=== PATIENT | male | born 1985 | race Caucasian/White ===

== ENCOUNTER 2016-11-20 20:50 | Emergency (ER) | payer MEDICAID, OTHER ==
[2016-11-20] MEDS ORDERED: NORCO 5/325MG TABLET (BULK) As Ordered ONE (22:37)
[2016-11-20] MEDS ORDERED: BACTRIM 160MG/800MG DS TAB As Ordered ONE (22:37)
--- NOTE | 2016-11-20 22:52 | EDDOCDS ---
Physician Documentation [facility] Name: Gerald Shaw Age: 31 yrs Sex: Male : 1985 Arrival Date: 11/20/2016 Time: 20:50 Bed TR7 Private MD: NO PRIMARY PHYSICIAN, . Disposition: 11/20/16 22:39 Discharged to Home/Self Care. Impression: Pilonidal cyst without abscess. - Condition is Stable. - Discharge Instructions: Pilonidal Cyst. - Prescriptions for Percocet 5- 325 mg Oral Tablet - take 1 tablet by ORAL route every [address] MARY MDD: 4 tabs; 20 tablet. Bactrim DS 800- 160 mg Oral Tablet - take 1 tablet by ORAL route every 12 hours for 10 days; 20 tablet. - Medication Reconciliation, Local Pharmacy Hours form. - Follow up: Emergency Department; When: 1 - 2 days; Reason: Wound/Symptom Recheck, Recheck today's complaints, Continuance of care. - Problem is new. - Symptoms have improved. - Notes: USE MEDICATIONS INSTRUCTED, FOLLOW UP IN THE ER IN 2 DAYS FOR RECHECK, RETURN TO THE ER SOONER IF FEVER BEGINS OR SYMPTOMS WORSEN, BE SURE TO USE WARM SOAKS OR COMPRESSES Historical: - Allergies: Seroquel; - Home Meds: 1. none - PMHx: pleurisy; - PSHx: Adenoidectomy; - Social history: Smoking status: Patient states former smoker of tobacco. No barriers to communication noted, The patient speaks fluent Hungarian, Speaks appropriately for age. - Family history: No immediate family members are acutely ill. - : The pt / caregiver states he / she is not on anticoagulants. Home medication list is obtained from the patient. - Exposure Risk Screening:: None identified. Vital Signs: 11/20 20:51 BP 172 / 84; Pulse 110; Resp 18; Temp 97; Pulse Ox 96% ; Weight 145.15 kg / 320 lbs; jlm Height 6 ft. 3 in. (190.50 cm); Pain 8/10; 22:49 BP 168 / 88; Pulse 102; Resp 17; Temp 97.6(T); Pulse Ox 99% on R/A; mb9 20:51 Body Mass Index 40.00 (145.15 kg, 190.50 cm) jlm MDM: 22:32 oxyCODONE-acetaminophen 4 pack 5 mg-325 mg 1 packets PO once; Dispense with pt, take as ck7 per instruction on package ordered. 22:32 Trimethoprim-Sulfamethoxazole 160 mg-800 mg (DS) 1 tabs PO once ordered. ck7 Administered Medications: 22:48 Drug: oxyCODONE-acetaminophen 4 pack 1 packets [oxycodone-acetaminophen 5 mg-325 mg mb9 tablet (1 tabs)] {Co-Signature: kmg1 (Jo Ann Avilez RN).} Route: PO; 22:49 Drug: Trimethoprim-Sulfamethoxazole 1 tabs [sulfamethoxazole 800 mg-trimethoprim 160 mg mb9 tablet (1 tabs)] Route: PO; Signatures: Rubina GonzalezRN RN jo3 Ambrosio Casas RPA-C RPA-Cck7 Haris Alexandra RN RN mb9 Jo Ann Avilez RN kmg1 MTDD
--- NOTE | 2016-11-20 22:52 | EDDOCDS ---
Nurse's Notes [facility] Name: Gerald Shaw Age: 31 yrs Sex: Male : 1985 Arrival Date: 11/20/2016 Time: 20:50 Bed TR7 Private MD: NO PRIMARY PHYSICIAN, . Diagnosis: Pilonidal cyst without abscess Presentation: 11/20 20:56 Presenting complaint: Patient states: History of pilonidal cyst. Has always drained on jo3 its own. This episode started 2 days ago and pain is significant and it has not opened up. Adult Sepsis Screening: The patient does not have new or worsening altered mentation. Patient's respiratory rate is less than 22. Systolic blood pressure is greater than 100. Patient has a qSOFA score of 0- Negative Sepsis Screen. Suicide/Homicide risk assessment- the patient denies having any suicidal and/or homicidal ideations and does not present with any other emotional, behavioral or mental health complaints. Status: Patient is not a food service associate or dependent. Transition of care: patient was not received from another setting of care. 20:56 Acuity: PANCHO Level 3 jo3 20:56 Method Of Arrival: Walkin/Carried/Asstd jo3 Triage Assessment: 20:58 General: Appears uncomfortable, Behavior is appropriate for age, cooperative. Pain: jo3 Pain currently is 6 out of 10 on a pain scale. At worst was 9 out of 10 on a pain scale. HIV screening NA for this visit Offered previously. Neurological: Level of Consciousness is awake, alert, Oriented to person, place, time. Respiratory: Airway is patent Respiratory effort is even, unlabored. Derm: Skin is pink, warm & dry. Historical: - Allergies: Seroquel; - Home Meds: 1. none - PMHx: pleurisy; - PSHx: Adenoidectomy; - Social history: Smoking status: Patient states former smoker of tobacco. No barriers to communication noted, The patient speaks fluent Thai, Speaks appropriately for age. - Family history: No immediate family members are acutely ill. - : The pt / caregiver states he / she is not on anticoagulants. Home medication list is obtained from the patient. - Exposure Risk Screening:: None identified. Screenin:49 Screening information is obtained from the patient. Fall risk: No risks identified. mb9 Assistance ADL's: requires no assistance with activities of daily living. Abuse/DV Screen: The patient / caregiver reports he/she is: not in a situation that causes fear, pain or injury. Nutritional screening: No deficits noted. Advance Directives: There is no active DNR order. home support is adequate. Assessment: 22:49 General: Appears uncomfortable, Behavior is cooperative. Pain: Location: buttocks Pain mb9 currently is 8 out of 10 on a pain scale. Respiratory: Airway is patent Respiratory effort is even, unlabored. Vital Signs: 20:51 BP 172 / 84; Pulse 110; Resp 18; Temp 97; Pulse Ox 96% ; Weight 145.15 kg; Height 6 ft. jlm 3 in. (190.50 cm); Pain 8/10; 22:49 BP 168 / 88; Pulse 102; Resp 17; Temp 97.6(T); Pulse Ox 99% on R/A; mb9 20:51 Body Mass Index 40.00 (145.15 kg, 190.50 cm) [facility] Vitals: 20:51 Log In Time: November 20, 2016 at 20:51. [facility] ED Course: 20:50 Patient visited by Baylee Alcantara, Safety And Security Officer. jlm 20:50 Patient moved to Waiting jl 20:51 DANNY ROMEO is Private Physician. [facility] 20:51 NO PRIMARY PHYSICIAN, . is Private Physician. jlm 20:53 Patient moved to Pre RCE jlm 20:57 Triage Initiated jo3 20:59 Patient visited by Rubina Gonzalez RN. jo3 21:20 Patient moved to Triage 3 jb5 21:54 Patient visited by Stephanie Brizuela PCA. jb5 22:04 [facility]C [facility] ck7 22:04 Finesse Luke DO is Attending Physician. ck7 22:04 Patient visited by Ambrosio Casas RPA-C. ck7 22:48 Patient moved to TR mb9 22:49 The patient / caregiver is instructed regarding the plan of care and ED course. Patient mb9 has correct armband on for positive identification. 22:49 No IV's were initiated during this patient's visit. No procedures done that require mb9 assistance. Administered Medications: 22:48 Drug: oxyCODONE-acetaminophen 4 pack 1 packets [oxycodone-acetaminophen 5 mg-325 mg mb9 tablet (1 tabs)] {Co-Signature: kmg1 (Jo Ann Avilez RN).} Route: PO; 22:49 Drug: Trimethoprim-Sulfamethoxazole 1 tabs [sulfamethoxazole 800 mg-trimethoprim 160 mg mb9 tablet (1 tabs)] Route: PO; Order Results: There are currently no results for this order. Outcome: 22:39 Discharge ordered by Provider. ck7 22:49 Discharge Assessment: Patient awake, alert and oriented x 3. No cognitive and/or mb9 functional deficits noted. Patient verbalized understanding of disposition instructions. patient administered narcotics - no. The following High Risk Discharge criteria are identified: None. Discharged to home ambulatory. Condition: good Condition: stable. Discharge instructions given to patient, significant other, Instructed on discharge instructions, follow up and referral plans. medication usage, Demonstrated understanding of instructions, medications, Pt was receptive of discharge instructions/ teaching. Prescriptions given X 2. No special radiology studies were completed. Property :Personal belongings accompany Pt. 22:51 Patient left the ED. mb9 Signatures: Stephanie Brizuela, SALES AND MERCHANDISING REPRESENTATIVE SALES AND MERCHANDISING REPRESENTATIVE jb5 Rubina Gonzalez,RN RN Ambrosio Caballero, RPA-C RPA-Cck7 Baylee Alcantara, Safety And Security Officer Unit Haris MurciaRN RN mb9 Jo Ann Avilez RN kmg1 MTDD
--- NOTE | 2016-11-22 23:52 | EDDOCDS ---
Nurse's Notes [facility] Name: Gerald Shaw Age: 31 yrs Sex: Male : 1985 Arrival Date: 11/20/2016 Time: 20:50 Bed TR7 Private MD: NO PRIMARY PHYSICIAN, . Diagnosis: Pilonidal cyst without abscess Presentation: 11/20 20:56 Presenting complaint: Patient states: History of pilonidal cyst. Has always drained on jo3 its own. This episode started 2 days ago and pain is significant and it has not opened up. Adult Sepsis Screening: The patient does not have new or worsening altered mentation. Patient's respiratory rate is less than 22. Systolic blood pressure is greater than 100. Patient has a qSOFA score of 0- Negative Sepsis Screen. Suicide/Homicide risk assessment- the patient denies having any suicidal and/or homicidal ideations and does not present with any other emotional, behavioral or mental health complaints. Status: Patient is not a park services specialist or dependent. Transition of care: patient was not received from another setting of care. 20:56 Acuity: PANCHO Level 3 jo3 20:56 Method Of Arrival: Walkin/Carried/Asstd jo3 Triage Assessment: 20:58 General: Appears uncomfortable, Behavior is appropriate for age, cooperative. Pain: jo3 Pain currently is 6 out of 10 on a pain scale. At worst was 9 out of 10 on a pain scale. HIV screening NA for this visit Offered previously. Neurological: Level of Consciousness is awake, alert, Oriented to person, place, time. Respiratory: Airway is patent Respiratory effort is even, unlabored. Derm: Skin is pink, warm & dry. Historical: - Allergies: Seroquel; - Home Meds: 1. none - PMHx: pleurisy; - PSHx: Adenoidectomy; - Social history: Smoking status: Patient states former smoker of tobacco. No barriers to communication noted, The patient speaks fluent Korean, Speaks appropriately for age. - Family history: No immediate family members are acutely ill. - : The pt / caregiver states he / she is not on anticoagulants. Home medication list is obtained from the patient. - Exposure Risk Screening:: None identified. Screenin:49 Screening information is obtained from the patient. Fall risk: No risks identified. mb9 Assistance ADL's: requires no assistance with activities of daily living. Abuse/DV Screen: The patient / caregiver reports he/she is: not in a situation that causes fear, pain or injury. Nutritional screening: No deficits noted. Advance Directives: There is no active DNR order. home support is adequate. Assessment: 22:49 General: Appears uncomfortable, Behavior is cooperative. Pain: Location: buttocks Pain mb9 currently is 8 out of 10 on a pain scale. Respiratory: Airway is patent Respiratory effort is even, unlabored. Vital Signs: 20:51 BP 172 / 84; Pulse 110; Resp 18; Temp 97; Pulse Ox 96% ; Weight 145.15 kg; Height 6 ft. jlm 3 in. (190.50 cm); Pain 8/10; 22:49 BP 168 / 88; Pulse 102; Resp 17; Temp 97.6(T); Pulse Ox 99% on R/A; mb9 20:51 Body Mass Index 40.00 (145.15 kg, 190.50 cm) [facility] Vitals: 20:51 Log In Time: November 20, 2016 at 20:51. [facility] ED Course: 20:50 Patient visited by Baylee Alcantara, [employer] Executive Director. jlm 20:50 Patient moved to Waiting jl 20:51 DANNY ROMEO is Private Physician. [facility] 20:51 NO PRIMARY PHYSICIAN, . is Private Physician. jlm 20:53 Patient moved to Pre RCE jlm 20:57 Triage Initiated jo3 20:59 Patient visited by Rubina Gonzalez,MIHIR. jo3 21:20 Patient moved to Triage 3 jb5 21:54 Patient visited by Stephanie Brizuela PCA. jb5 22:04 Ambrosio Casas RPA-C [facility]. ck7 22:04 Finesse Luke DO is Attending Physician. ck7 22:04 Patient visited by Ambrosio Casas RPA-C. ck7 22:48 Patient moved to TR7 mb9 22:49 The patient / caregiver is instructed regarding the plan of care and ED course. Patient mb9 has correct armband on for positive identification. 22:49 No IV's were initiated during this patient's visit. No procedures done that require mb9 assistance. 11/21 08:56 T-Sheet-- Draft Copy was scanned into [employer] and attached to record. [facility] Administered Medications: 11/20 22:48 Drug: oxyCODONE-acetaminophen 4 pack 1 packets [oxycodone-acetaminophen 5 mg-325 mg mb9 tablet (1 tabs)] {Co-Signature: kmg1 (Jo Ann Avilez RN).} Route: PO; 22:49 Drug: Trimethoprim-Sulfamethoxazole 1 tabs [sulfamethoxazole 800 mg-trimethoprim 160 mg mb9 tablet (1 tabs)] Route: PO; Order Results: There are currently no results for this order. Outcome: 22:39 Discharge ordered by Provider. ck7 22:49 Discharge Assessment: Patient awake, alert and oriented x 3. No cognitive and/or mb9 functional deficits noted. Patient verbalized understanding of disposition instructions. patient administered narcotics - no. The following High Risk Discharge criteria are identified: None. Discharged to home ambulatory. Condition: good Condition: stable. Discharge instructions given to patient, significant other, Instructed on discharge instructions, follow up and referral plans. medication usage, Demonstrated understanding of instructions, medications, Pt was receptive of discharge instructions/ teaching. Prescriptions given X 2. No special radiology studies were completed. Property :Personal belongings accompany Pt. 22:51 Patient left the ED. mb9 Signatures: Stephanie Brizuela, JAMIE INVENTORY ASSOCIATE AND DRIVER jb5 Rubina Gonzalez,RN RN Ambrosio Caballero, SABINA-C RPA-Cck7 Baylee Alcantara, [employer] Executive Director Unit Haris MurciaRN RN mb9 Pat Copeland RN kmg1 Chart Complete MTDD
--- NOTE | 2016-11-22 23:52 | EDDOCDS ---
Physician Documentation [facility] Name: Gerald Shaw Age: 31 yrs Sex: Male : 1985 Arrival Date: 11/20/2016 Time: 20:50 Bed TR7 Private MD: NO PRIMARY PHYSICIAN, . Disposition: 11/20/16 22:39 Discharged to Home/Self Care. Impression: Pilonidal cyst without abscess. - Condition is Stable. - Discharge Instructions: Pilonidal Cyst. - Prescriptions for Percocet 5- 325 mg Oral Tablet - take 1 tablet by ORAL route every [address] MARY MDD: 4 tabs; 20 tablet. Bactrim DS 800- 160 mg Oral Tablet - take 1 tablet by ORAL route every 12 hours for 10 days; 20 tablet. - Medication Reconciliation, Local Pharmacy Hours form. - Follow up: Emergency Department; When: 1 - 2 days; Reason: Wound/Symptom Recheck, Recheck today's complaints, Continuance of care. - Problem is new. - Symptoms have improved. - Notes: USE MEDICATIONS INSTRUCTED, FOLLOW UP IN THE ER IN 2 DAYS FOR RECHECK, RETURN TO THE ER SOONER IF FEVER BEGINS OR SYMPTOMS WORSEN, BE SURE TO USE WARM SOAKS OR COMPRESSES Historical: - Allergies: Seroquel; - Home Meds: 1. none - PMHx: pleurisy; - PSHx: Adenoidectomy; - Social history: Smoking status: Patient states former smoker of tobacco. No barriers to communication noted, The patient speaks fluent Kittitian, Speaks appropriately for age. - Family history: No immediate family members are acutely ill. - : The pt / caregiver states he / she is not on anticoagulants. Home medication list is obtained from the patient. - Exposure Risk Screening:: None identified. Vital Signs: 11/20 20:51 BP 172 / 84; Pulse 110; Resp 18; Temp 97; Pulse Ox 96% ; Weight 145.15 kg / 320 lbs; jlm Height 6 ft. 3 in. (190.50 cm); Pain 8/10; 22:49 BP 168 / 88; Pulse 102; Resp 17; Temp 97.6(T); Pulse Ox 99% on R/A; mb9 20:51 Body Mass Index 40.00 (145.15 kg, 190.50 cm) jlm MDM: 22:32 oxyCODONE-acetaminophen 4 pack 5 mg-325 mg 1 packets PO once; Dispense with pt, take as ck7 per instruction on package ordered. 22:32 Trimethoprim-Sulfamethoxazole 160 mg-800 mg (DS) 1 tabs PO once ordered. ck7 11/21 08:56 T-Sheet-- Draft Copy was scanned into [employer] and attached to record. [facility] Administered Medications: 11/20 22:48 Drug: oxyCODONE-acetaminophen 4 pack 1 packets [oxycodone-acetaminophen 5 mg-325 mg mb9 tablet (1 tabs)] {Co-Signature: kmg1 (Jo Ann Avilez RN).} Route: PO; 22:49 Drug: Trimethoprim-Sulfamethoxazole 1 tabs [sulfamethoxazole 800 mg-trimethoprim 160 mg mb9 tablet (1 tabs)] Route: PO; Signatures: Rubina Gonzalez RN RN jo3 Ambrosio Casas, SABINA-C RPA-Cck7 Haris Aelxandra RN RN mb9 Pat Copeland RN kmg1 The chart was reviewed and I authenticate all verbal orders and agree with the evaluation and treatment provided.Attachments: 11/21 08:56 T-Sheet-- Draft Copy [facility] Chart Complete MTDD
--- NOTE | 2016-11-22 23:52 | EDDOCDS ---
Physician Documentation [facility] Name: Gerald Shaw Age: 31 yrs Sex: Male : 1985 Arrival Date: 11/20/2016 Time: 20:50 Bed TR7 Private MD: NO PRIMARY PHYSICIAN, . Disposition: 11/20/16 22:39 Discharged to Home/Self Care. Impression: Pilonidal cyst without abscess. - Condition is Stable. - Discharge Instructions: Pilonidal Cyst. - Prescriptions for Percocet 5- 325 mg Oral Tablet - take 1 tablet by ORAL route every [address] MARY MDD: 4 tabs; 20 tablet. Bactrim DS 800- 160 mg Oral Tablet - take 1 tablet by ORAL route every 12 hours for 10 days; 20 tablet. - Medication Reconciliation, Local Pharmacy Hours form. - Follow up: Emergency Department; When: 1 - 2 days; Reason: Wound/Symptom Recheck, Recheck today's complaints, Continuance of care. - Problem is new. - Symptoms have improved. - Notes: USE MEDICATIONS INSTRUCTED, FOLLOW UP IN THE ER IN 2 DAYS FOR RECHECK, RETURN TO THE ER SOONER IF FEVER BEGINS OR SYMPTOMS WORSEN, BE SURE TO USE WARM SOAKS OR COMPRESSES Historical: - Allergies: Seroquel; - Home Meds: 1. none - PMHx: pleurisy; - PSHx: Adenoidectomy; - Social history: Smoking status: Patient states former smoker of tobacco. No barriers to communication noted, The patient speaks fluent Dutch, Speaks appropriately for age. - Family history: No immediate family members are acutely ill. - : The pt / caregiver states he / she is not on anticoagulants. Home medication list is obtained from the patient. - Exposure Risk Screening:: None identified. Vital Signs: 11/20 20:51 BP 172 / 84; Pulse 110; Resp 18; Temp 97; Pulse Ox 96% ; Weight 145.15 kg / 320 lbs; jlm Height 6 ft. 3 in. (190.50 cm); Pain 8/10; 22:49 BP 168 / 88; Pulse 102; Resp 17; Temp 97.6(T); Pulse Ox 99% on R/A; mb9 20:51 Body Mass Index 40.00 (145.15 kg, 190.50 cm) jlm MDM: 22:32 oxyCODONE-acetaminophen 4 pack 5 mg-325 mg 1 packets PO once; Dispense with pt, take as ck7 per instruction on package ordered. 22:32 Trimethoprim-Sulfamethoxazole 160 mg-800 mg (DS) 1 tabs PO once ordered. ck7 11/21 08:56 T-Sheet-- Draft Copy was scanned into [employer] and attached to record. [facility] Administered Medications: 11/20 22:48 Drug: oxyCODONE-acetaminophen 4 pack 1 packets [oxycodone-acetaminophen 5 mg-325 mg mb9 tablet (1 tabs)] {Co-Signature: kmg1 (Jo Ann Avilez RN).} Route: PO; 22:49 Drug: Trimethoprim-Sulfamethoxazole 1 tabs [sulfamethoxazole 800 mg-trimethoprim 160 mg mb9 tablet (1 tabs)] Route: PO; Signatures: Rubina Gonzalez RN RN jo3 Ambrosio Casas, SABINA-C RPA-Cck7 Haris Alexandra RN RN mb9 Pat Copeland RN kmg1 The chart was reviewed and I authenticate all verbal orders and agree with the evaluation and treatment provided.Attachments: 11/21 08:56 T-Sheet-- Draft Copy [facility] Chart Complete MTDD
--- NOTE | 2016-11-23 17:11 | EDDOCDS ---
Nurse's Notes [facility] Name: Gerald Shaw Age: 31 yrs Sex: Male : 1985 Arrival Date: 11/20/2016 Time: 20:50 Bed TR7 Private MD: NO PRIMARY PHYSICIAN, . Diagnosis: Pilonidal cyst without abscess Presentation: 11/20 20:56 Presenting complaint: Patient states: History of pilonidal cyst. Has always drained on jo3 its own. This episode started 2 days ago and pain is significant and it has not opened up. Adult Sepsis Screening: The patient does not have new or worsening altered mentation. Patient's respiratory rate is less than 22. Systolic blood pressure is greater than 100. Patient has a qSOFA score of 0- Negative Sepsis Screen. Suicide/Homicide risk assessment- the patient denies having any suicidal and/or homicidal ideations and does not present with any other emotional, behavioral or mental health complaints. Status: Patient is not a certified appliance service technician or dependent. Transition of care: patient was not received from another setting of care. 20:56 Acuity: PANCHO Level 3 jo3 20:56 Method Of Arrival: Walkin/Carried/Asstd jo3 Triage Assessment: 20:58 General: Appears uncomfortable, Behavior is appropriate for age, cooperative. Pain: jo3 Pain currently is 6 out of 10 on a pain scale. At worst was 9 out of 10 on a pain scale. HIV screening NA for this visit Offered previously. Neurological: Level of Consciousness is awake, alert, Oriented to person, place, time. Respiratory: Airway is patent Respiratory effort is even, unlabored. Derm: Skin is pink, warm & dry. Historical: - Allergies: Seroquel; - Home Meds: 1. none - PMHx: pleurisy; - PSHx: Adenoidectomy; - Social history: Smoking status: Patient states former smoker of tobacco. No barriers to communication noted, The patient speaks fluent Luxembourgish, Speaks appropriately for age. - Family history: No immediate family members are acutely ill. - : The pt / caregiver states he / she is not on anticoagulants. Home medication list is obtained from the patient. - Exposure Risk Screening:: None identified. Screenin:49 Screening information is obtained from the patient. Fall risk: No risks identified. mb9 Assistance ADL's: requires no assistance with activities of daily living. Abuse/DV Screen: The patient / caregiver reports he/she is: not in a situation that causes fear, pain or injury. Nutritional screening: No deficits noted. Advance Directives: There is no active DNR order. home support is adequate. Assessment: 22:49 General: Appears uncomfortable, Behavior is cooperative. Pain: Location: buttocks Pain mb9 currently is 8 out of 10 on a pain scale. Respiratory: Airway is patent Respiratory effort is even, unlabored. Vital Signs: 20:51 BP 172 / 84; Pulse 110; Resp 18; Temp 97; Pulse Ox 96% ; Weight 145.15 kg; Height 6 ft. jlm 3 in. (190.50 cm); Pain 8/10; 22:49 BP 168 / 88; Pulse 102; Resp 17; Temp 97.6(T); Pulse Ox 99% on R/A; mb9 20:51 Body Mass Index 40.00 (145.15 kg, 190.50 cm) [facility] Vitals: 20:51 Log In Time: November 20, 2016 at 20:51. [facility] ED Course: 20:50 Patient visited by Baylee Alcantara, Train Station Agent. jlm 20:50 Patient moved to Waiting jl 20:51 DANNY ROMEO is Private Physician. [facility] 20:51 NO PRIMARY PHYSICIAN, . is Private Physician. jlm 20:53 Patient moved to Pre RCE jlm 20:57 Triage Initiated jo3 20:59 Patient visited by Rubina Gonzalez,MIHIR. jo3 21:20 Patient moved to Triage 3 jb5 21:54 Patient visited by Stephanie Brizuela PCA. jb5 22:04 [facility]ros[facility] Casas R[facility]-C [facility]. ck7 22:04 Finesse Luke DO is Attending Physician. ck7 22:04 Patient visited by Ambrosio Casas RPA-C. ck7 22:48 Patient moved to TR7 mb9 22:49 The patient / caregiver is instructed regarding the plan of care and ED course. Patient mb9 has correct armband on for positive identification. 22:49 No IV's were initiated during this patient's visit. No procedures done that require mb9 assistance. 11/21 08:56 T-Sheet-- Draft Copy was scanned into [employer] and attached to record. [facility] Administered Medications: 11/20 22:48 Drug: oxyCODONE-acetaminophen 4 pack 1 packets [oxycodone-acetaminophen 5 mg-325 mg mb9 tablet (1 tabs)] {Co-Signature: kmg1 (Jo Ann Avilez RN).} Route: PO; 22:49 Drug: Trimethoprim-Sulfamethoxazole 1 tabs [sulfamethoxazole 800 mg-trimethoprim 160 mg mb9 tablet (1 tabs)] Route: PO; Order Results: There are currently no results for this order. Outcome: 22:39 Discharge ordered by Provider. ck7 22:49 Discharge Assessment: Patient awake, alert and oriented x 3. No cognitive and/or mb9 functional deficits noted. Patient verbalized understanding of disposition instructions. patient administered narcotics - no. The following High Risk Discharge criteria are identified: None. Discharged to home ambulatory. Condition: good Condition: stable. Discharge instructions given to patient, significant other, Instructed on discharge instructions, follow up and referral plans. medication usage, Demonstrated understanding of instructions, medications, Pt was receptive of discharge instructions/ teaching. Prescriptions given X 2. No special radiology studies were completed. Property :Personal belongings accompany Pt. 22:51 Patient left the ED. mb9 Signatures: Stephanie Brizuela, JAMIE CREDIT CLERK jb5 Rubina Gonzalez,RN RN Ambrosio Caballero, SABINA-C RPA-Cck7 Baylee Alcantara, Train Station Agent Unit Haris MurciaRN RN mb9 Pat Copeland RN kmg1 Chart Complete MTDD
--- NOTE | 2016-11-23 17:11 | EDDOCDS ---
Physician Documentation [facility] Name: Gerald Shaw Age: 31 yrs Sex: Male : 1985 Arrival Date: 11/20/2016 Time: 20:50 Bed TR7 Private MD: NO PRIMARY PHYSICIAN, . Disposition: 11/20/16 22:39 Discharged to Home/Self Care. Impression: Pilonidal cyst without abscess. - Condition is Stable. - Discharge Instructions: Pilonidal Cyst. - Prescriptions for Percocet 5- 325 mg Oral Tablet - take 1 tablet by ORAL route every [address] MARY MDD: 4 tabs; 20 tablet. Bactrim DS 800- 160 mg Oral Tablet - take 1 tablet by ORAL route every 12 hours for 10 days; 20 tablet. - Medication Reconciliation, Local Pharmacy Hours form. - Follow up: Emergency Department; When: 1 - 2 days; Reason: Wound/Symptom Recheck, Recheck today's complaints, Continuance of care. - Problem is new. - Symptoms have improved. - Notes: USE MEDICATIONS INSTRUCTED, FOLLOW UP IN THE ER IN 2 DAYS FOR RECHECK, RETURN TO THE ER SOONER IF FEVER BEGINS OR SYMPTOMS WORSEN, BE SURE TO USE WARM SOAKS OR COMPRESSES Historical: - Allergies: Seroquel; - Home Meds: 1. none - PMHx: pleurisy; - PSHx: Adenoidectomy; - Social history: Smoking status: Patient states former smoker of tobacco. No barriers to communication noted, The patient speaks fluent Djiboutian, Speaks appropriately for age. - Family history: No immediate family members are acutely ill. - : The pt / caregiver states he / she is not on anticoagulants. Home medication list is obtained from the patient. - Exposure Risk Screening:: None identified. Vital Signs: 11/20 20:51 BP 172 / 84; Pulse 110; Resp 18; Temp 97; Pulse Ox 96% ; Weight 145.15 kg / 320 lbs; jlm Height 6 ft. 3 in. (190.50 cm); Pain 8/10; 22:49 BP 168 / 88; Pulse 102; Resp 17; Temp 97.6(T); Pulse Ox 99% on R/A; mb9 20:51 Body Mass Index 40.00 (145.15 kg, 190.50 cm) jlm MDM: 22:32 oxyCODONE-acetaminophen 4 pack 5 mg-325 mg 1 packets PO once; Dispense with pt, take as ck7 per instruction on package ordered. 22:32 Trimethoprim-Sulfamethoxazole 160 mg-800 mg (DS) 1 tabs PO once ordered. ck7 11/21 08:56 T-Sheet-- Draft Copy was scanned into [employer] and attached to record. [facility] Administered Medications: 11/20 22:48 Drug: oxyCODONE-acetaminophen 4 pack 1 packets [oxycodone-acetaminophen 5 mg-325 mg mb9 tablet (1 tabs)] {Co-Signature: kmg1 (Jo Ann Avilez RN).} Route: PO; 22:49 Drug: Trimethoprim-Sulfamethoxazole 1 tabs [sulfamethoxazole 800 mg-trimethoprim 160 mg mb9 tablet (1 tabs)] Route: PO; Signatures: Rubina Gonzalez RN RN jo3 Ambrosio Casas, SABINA-C RPA-Cck7 Haris Alexandra RN RN mb9 Pat Copeland RN kmg1 The chart was reviewed and I authenticate all verbal orders and agree with the evaluation and treatment provided.Attachments: 11/21 08:56 T-Sheet-- Draft Copy [facility] Chart Complete MTDD
--- NOTE | 2016-11-23 17:11 | EDDOCDS ---
Physician Documentation [facility] Name: Gerald Shaw Age: 31 yrs Sex: Male : 1985 Arrival Date: 11/20/2016 Time: 20:50 Bed TR7 Private MD: NO PRIMARY PHYSICIAN, . Disposition: 11/20/16 22:39 Discharged to Home/Self Care. Impression: Pilonidal cyst without abscess. - Condition is Stable. - Discharge Instructions: Pilonidal Cyst. - Prescriptions for Percocet 5- 325 mg Oral Tablet - take 1 tablet by ORAL route every [address] MARY MDD: 4 tabs; 20 tablet. Bactrim DS 800- 160 mg Oral Tablet - take 1 tablet by ORAL route every 12 hours for 10 days; 20 tablet. - Medication Reconciliation, Local Pharmacy Hours form. - Follow up: Emergency Department; When: 1 - 2 days; Reason: Wound/Symptom Recheck, Recheck today's complaints, Continuance of care. - Problem is new. - Symptoms have improved. - Notes: USE MEDICATIONS INSTRUCTED, FOLLOW UP IN THE ER IN 2 DAYS FOR RECHECK, RETURN TO THE ER SOONER IF FEVER BEGINS OR SYMPTOMS WORSEN, BE SURE TO USE WARM SOAKS OR COMPRESSES Historical: - Allergies: Seroquel; - Home Meds: 1. none - PMHx: pleurisy; - PSHx: Adenoidectomy; - Social history: Smoking status: Patient states former smoker of tobacco. No barriers to communication noted, The patient speaks fluent Zambian, Speaks appropriately for age. - Family history: No immediate family members are acutely ill. - : The pt / caregiver states he / she is not on anticoagulants. Home medication list is obtained from the patient. - Exposure Risk Screening:: None identified. Vital Signs: 11/20 20:51 BP 172 / 84; Pulse 110; Resp 18; Temp 97; Pulse Ox 96% ; Weight 145.15 kg / 320 lbs; jlm Height 6 ft. 3 in. (190.50 cm); Pain 8/10; 22:49 BP 168 / 88; Pulse 102; Resp 17; Temp 97.6(T); Pulse Ox 99% on R/A; mb9 20:51 Body Mass Index 40.00 (145.15 kg, 190.50 cm) jlm MDM: 22:32 oxyCODONE-acetaminophen 4 pack 5 mg-325 mg 1 packets PO once; Dispense with pt, take as ck7 per instruction on package ordered. 22:32 Trimethoprim-Sulfamethoxazole 160 mg-800 mg (DS) 1 tabs PO once ordered. ck7 11/21 08:56 T-Sheet-- Draft Copy was scanned into [employer] and attached to record. [facility] Administered Medications: 11/20 22:48 Drug: oxyCODONE-acetaminophen 4 pack 1 packets [oxycodone-acetaminophen 5 mg-325 mg mb9 tablet (1 tabs)] {Co-Signature: kmg1 (Jo Ann Avilez RN).} Route: PO; 22:49 Drug: Trimethoprim-Sulfamethoxazole 1 tabs [sulfamethoxazole 800 mg-trimethoprim 160 mg mb9 tablet (1 tabs)] Route: PO; Signatures: Rubina Gonzalez RN RN jo3 Ambrosio Casas, SABINA-C RPA-Cck7 Haris Alexandra RN RN mb9 Pat Copeland RN kmg1 The chart was reviewed and I authenticate all verbal orders and agree with the evaluation and treatment provided.Attachments: 11/21 08:56 T-Sheet-- Draft Copy [facility] Chart Complete MTDD
== END 2016-11-20 22:51 | disposition home or self-care (01) ==
LOC: M ED 20:50
DX: L05.91 Pilonidal cyst without abscess (principal); Z87.09 Personal history of other diseases of the respiratory system; Z88.8 Allergy status to other drugs, medicaments and biological substances; Z87.891 Personal history of nicotine dependence

== ENCOUNTER 2017-02-03 20:24 | Emergency (ER) | payer MEDICAID, SELFPAY ==
[~2017-02-03] VITALS: Ht 188 cm; Wt 145.1 kg
[2017-02-03] MEDS ORDERED: KETOROLAC 30 MG/ML VIAL (J1885) IV ONE (22:15)
[2017-02-03] MEDS ORDERED: GASTROGRAFIN SOLUTION 30ML (Q9963) As Ordered ONE (22:34)
[2017-02-03] MEDS ORDERED: GASTROGRAFIN SOLUTION 30ML (Q9963) PO ONE ×2 (22:40→23:10)
[2017-02-03 22:42] LABS: BASO % 0.6 % (0.0-1.0); EOS # 0.2 K/mm3 (0.0-0.50); EOS % 2.5 % (0.0-3.0); LARGE UNSTAINED CELL # 0.2 K/mm3 (0.0-0.4); LYMPH # 3.1 K/mm3 (1.5-4.5); LYMPH % 32.6 % (24.0-44.0); MEAN CORPUSCULAR HGB CONC 34.2 g/dl (32.0-36.5); MEAN CORPUSCULAR VOLUME 84.9 fl (80.0-96.0); MONO # 0.6 K/mm3 (0.0-0.8); MONO % 6.4 % (0.0-5.0); NEUTROPHILS % 55.8 % (36.0-66.0); PLATELET COUNT, AUTOMATED 295 k/mm3 (150-450); RED CELL DISTRIBUTION WIDTH 13.4 % (11.5-14.5); WHITE BLOOD COUNT 8.9 K/mm3 (4.0-10.0)
[2017-02-03] MEDS ORDERED: MORPHINE 4 MG/ML 1ML SYRINGE IV ONE (23:00)
[2017-02-03 23:06] LABS: ALBUMIN 3.8 GM/DL (3.2-5.2); ALBUMIN/GLOBULIN RATIO 1.15 (1.00-1.93); ALKALINE PHOSPHATASE 101 U/L (45-117); ALT/SGPT 81 U/L (12-78); AMYLASE 43 U/L (25-115); ANION GAP 7 MEQ/L (8-16); AST/SGOT 34 U/L (15-37); BILIRUBIN,DIRECT < 0.1 MG/DL (0.0-0.2); BILIRUBIN,TOTAL 0.3 MG/DL (0.2-1.0); BLOOD UREA NITROGEN 19 MG/DL (7-18); CALCIUM LEVEL 8.6 MG/DL (8.5-10.1); CARBON DIOXIDE LEVEL 27 MEQ/L (21-32); CHLORIDE LEVEL 105 MEQ/L (98-107); CREATININE FOR GFR 1.06 MG/DL (0.70-1.30); GLOMERULAR FILTRATION RATE > 60.0 (>60); GLUCOSE, FASTING 121 MG/DL (70-105); POTASSIUM SERUM 4.1 MEQ/L (3.5-5.1); SODIUM LEVEL 139 MEQ/L (136-145); TOTAL PROTEIN 7.1 GM/DL (6.4-8.2)
--- NOTE | 2017-02-03 23:40 | REPUSA ---
CT of the abdomen and pelvis without contrast Clinical statement: Pain. Technique: Multiple axial CT images were obtained from the base of the lungs to the floor of the pelv is utilizing 5 mm axial slices after administration of oral contrast. Coronal and sagittal reconstruc tions were also obtained. No comparison is available. Findings: Chest: The visualized lung bases are clear. Abdomen: The kidneys are normal in size bilaterally. There is no evidence of hydronephrosis or nephro lithiasis. The liver is enlarged, measuring 26.8 cm in longest diameter. Diffuse low attenuation of t he hepatic parenchyma is noted. The spleen, pancreas, gallbladder and adrenal glands are unremarkable . The aorta demonstrates normal caliber and contour. There is no abdominal lymphadenopathy or ascites . Pelvis: The bowel is unremarkable, with no obstructive or inflammatory changes. The appendix is magali l. The urinary bladder is within normal limits. There is no pelvic lymphadenopathy or ascites. The ot her pelvic structures appear unremarkable. Bones: There are no suspicious osseous abnormalities seen. Impression: 1. Hepatomegaly, with diffuse fatty infiltration of the liver. 2. No obstructive or inflammatory bowel changes. 3. No evidence of hydronephrosis or nephrolithiasis.
[2017-02-04] MEDS ORDERED: NAPR500T PO (00:17)
[2017-02-04 00:28] VITALS: BP 155/94
[2017-02-04] MEDS ORDERED: CYCLOBENZAPRINE 10 MG TAB PO ONE (00:30)
== END 2017-02-04 00:38 | disposition home or self-care (01) ==
LOC: M ED 21:41
DX: R10.12 Left upper quadrant pain (principal)
CPT/HCPCS: 74176; 80048; 80076; 81001; 82150; 83690; 85025; 86140; 96374; 96375; 99282; J1885; Q9963

== ENCOUNTER 2018-04-03 17:16 | Emergency (ER) | payer OTHER, SELFPAY ==
[2018-04-03] MEDS: NS 1,000 ML IV (18:15)
[2018-04-03] MEDS: levETIRAcetam INJection 1,500 MG in D5W 100 ML IV (18:30)
[2018-04-03 18:32] LABS: HEMATOCRIT 40.6 % (42.0-52.0); HEMOGLOBIN 13.7 g/dl (13.5-17.5); MEAN CORPUSCULAR HEMOGLOBIN 28.2 pg (27.0-33.0); MEAN CORPUSCULAR HGB CONC 33.7 g/dl (32.0-36.5); MEAN CORPUSCULAR VOLUME 83.5 fl (80.0-96.0); PLATELET COUNT, AUTOMATED 310 10^3/uL (150-450); RED BLOOD COUNT 4.86 10^6/uL (4.30-6.10); RED CELL DISTRIBUTION WIDTH 12.9 % (11.5-14.5); WHITE BLOOD COUNT 6.9 10^3/uL (4.0-10.0)
[2018-04-03 18:58] LABS: ACETAMINOPHEN LEVEL < 2.0 UG/ML (10.0-30.0); ALBUMIN 3.5 GM/DL (3.2-5.2); ALBUMIN/GLOBULIN RATIO 1.21 (1.00-1.93); ALKALINE PHOSPHATASE 77 U/L (45-117); ALT/SGPT 22 U/L (12-78); ANION GAP 8 MEQ/L (8-16); AST/SGOT 12 U/L (7-37); BILIRUBIN,DIRECT 0.1 MG/DL (0.0-0.2); BILIRUBIN,TOTAL 0.5 MG/DL (0.2-1.0); BLOOD UREA NITROGEN 5 MG/DL (7-18); CALCIUM LEVEL 8.5 MG/DL (8.5-10.1); CARBON DIOXIDE LEVEL 30 MEQ/L (21-32); CHLORIDE LEVEL 102 MEQ/L (98-107); CPK CREATINE PHOSPHOKINASE 95 U/L (39-308); ETHYL ALCOHOL (ETHANOL) < 0.003 % (0.000-0.010); GLOMERULAR FILTRATION RATE > 60.0 (>60); GLUCOSE, FASTING 144 MG/DL (70-100); POTASSIUM SERUM 4.2 MEQ/L (3.5-5.1); SALICYLATE LEVEL < 1.7 MG/DL (5.0-30.0); SODIUM LEVEL 140 MEQ/L (136-145); TOTAL PROTEIN 6.4 GM/DL (6.4-8.2)
[2018-04-03 20:32] LABS: AMPHETAMINES LEVEL URINE POSITIVE (NEGATIVE); BARBITURATES URINE NEGATIVE (NEGATIVE); BENZODIAZEPINES URINE NEGATIVE (NEGATIVE); CANNABINOIDS URINE NEGATIVE (NEGATIVE); COCAINE METABOLITE URINE NEGATIVE (NEGATIVE); METHADONE URINE NEGATIVE (NEGATIVE); OPIATES URINE POSITIVE (NEGATIVE); PHENCYCLIDINE URINE NEGATIVE (NEGATIVE)
== END 2018-04-03 22:40 | disposition home or self-care (01) ==
LOC: M ED 17:16
DX: G40.909 Epilepsy, unspecified, not intractable, without status epilepticus (principal); F11.10 Opioid abuse, uncomplicated; F17.200 Nicotine dependence, unspecified, uncomplicated; Z88.8 Allergy status to other drugs, medicaments and biological substances
CPT/HCPCS: J1953

== ENCOUNTER 2018-09-05 06:33 | Emergency (ER) | payer OTHER | END 2018-09-05 07:24 | disposition home or self-care (01) | LOC: M ED 06:33 | DX: A49.9 Bacterial infection, unspecified (principal) | CPT/HCPCS: 87186 ==

== ENCOUNTER 2019-04-16 19:56 | Emergency (ER) | payer OTHER ==
[~2019-04-16] VITALS: Ht 190.5 cm; Wt 109.1 kg
[~2019-04-16 19:56] MED LIST: BACT800T5 PO; GABA800T4; KEPP1TAB PO; MUPI2OI TOP; NAPR-837 PO; SUBO8MIS
[2019-04-16 20:04] VITALS: BP 131/71
== END 2019-04-16 20:42 | disposition left against medical advice (07) ==
LOC: M ED 19:56
DX: M25.579 Pain in unspecified ankle and joints of unspecified foot (principal); F19.10 Other psychoactive substance abuse, uncomplicated

== ENCOUNTER 2019-04-26 21:39 | Emergency (ER) | payer OTHER ==
[~2019-04-26] VITALS: Ht 188 cm; Wt 112.9 kg
[2019-04-26 22:00] VITALS: BP 153/83
== END 2019-04-26 22:13 | disposition home or self-care (01) ==
LOC: M ED 21:39
DX: F11.10 Opioid abuse, uncomplicated (principal); Z79.899 Other long term (current) drug therapy; Z88.8 Allergy status to other drugs, medicaments and biological substances

== ENCOUNTER 2019-08-30 16:25 | Emergency (ER) | payer MEDICAID, OTHER, SELFPAY ==
[~2019-08-30] VITALS: Ht 190.5 cm; Wt 104.5 kg
[2019-08-30] MEDS ORDERED: ONDANSETRON 4MG/2ML VIAL (J2405) IV ONE (17:00)
[2019-08-30] MEDS ORDERED: cloNIDine 0.1 MG TAB PO ONE (17:00)
[2019-08-30] MEDS ORDERED: cloNIDine 0.2 MG TAB PO ONE (17:00)
[2019-08-30 17:21] LABS: HEMATOCRIT 48.8 % (42.0-52.0); HEMOGLOBIN 15.5 g/dl (13.5-17.5); MEAN CORPUSCULAR HEMOGLOBIN 27.1 pg (27.0-33.0); MEAN CORPUSCULAR HGB CONC 31.8 g/dl (32.0-36.5); MEAN CORPUSCULAR VOLUME 85.2 fl (80.0-96.0); PLATELET COUNT, AUTOMATED 335 10^3/uL (150-450); RED BLOOD COUNT 5.73 10^6/uL (4.30-6.10); WHITE BLOOD COUNT 7.1 10^3/uL (4.0-10.0)
[2019-08-30] MEDS ORDERED: NS 1,000 ML IV ONE (17:30)
[2019-08-30 17:56] LABS: AMPHETAMINES LEVEL URINE NEGATIVE (NEGATIVE); BARBITURATES URINE NEGATIVE (NEGATIVE); BENZODIAZEPINES URINE NEGATIVE (NEGATIVE); CANNABINOIDS URINE NEGATIVE (NEGATIVE); COCAINE METABOLITE URINE NEGATIVE (NEGATIVE); METHADONE URINE NEGATIVE (NEGATIVE); OPIATES URINE POSITIVE (NEGATIVE); PHENCYCLIDINE URINE NEGATIVE (NEGATIVE)
[2019-08-30 18:05] LABS: ACETAMINOPHEN LEVEL < 2.0 UG/ML (10.0-30.0); ALBUMIN 3.9 GM/DL (3.2-5.2); ALT/SGPT 156 U/L (12-78); BILIRUBIN,DIRECT 0.2 MG/DL (0.0-0.2); BILIRUBIN,TOTAL 0.6 MG/DL (0.2-1.0); BLOOD UREA NITROGEN 11 MG/DL (7-18); CALCIUM LEVEL 9.1 MG/DL (8.5-10.1); CARBON DIOXIDE LEVEL 25 MEQ/L (21-32); CHLORIDE LEVEL 106 MEQ/L (98-107); CREATININE FOR GFR 0.78 MG/DL (0.70-1.30); ETHYL ALCOHOL (ETHANOL) < 0.003 % (0.000-0.010); GLOMERULAR FILTRATION RATE > 60.0 (>60); GLUCOSE, FASTING 105 MG/DL (70-100); POTASSIUM SERUM 4.3 MEQ/L (3.5-5.1); SALICYLATE LEVEL < 1.7 MG/DL (5.0-30.0); SODIUM LEVEL 138 MEQ/L (136-145); THYROID STIMULATING HORMONE 0.152 uIU/ML (0.358-3.740); TOTAL PROTEIN 7.4 GM/DL (6.4-8.2)
[2019-08-30] MEDS ORDERED: ENTER DRUG NAME HERE (PATIENT'S OWN MED) SC ONE (21:30)
[2019-08-31 03:08] VITALS: BP 160/90
--- NOTE | 2019-08-31 17:59 | ECGEPIP ---
[facility] - ED Test Date: 2019-08-30 Pat Name: IMANI PEÑA Department: Room: - Gender: Male Supervisor Forming Department: MICHAEL : 1985 Requested By: SADI KANG Order Number: [id number] Reading MD: Erick Pastrana Measurements Intervals [place] Rate: 62 P: 12 MN: 125 QRS: 67 QRSD: 101 T: 54 QT: 438 QTc: 446 Interpretive Statements SINUS RHYTHM BENIGN EARLY REPOLARIZATION SIMILAR TO 04/03/18 Electronically Signed on 08-31-2019 17:59:28 EST by Erick Pastrana
== END 2019-08-31 03:19 ==
LOC: EDBD 16:25 → M ED 16:25
DX: F11.23 Opioid dependence with withdrawal (principal); R45.851 Suicidal ideations; Z88.8 Allergy status to other drugs, medicaments and biological substances
CPT/HCPCS: 80048; 80076; 80307; 84443; 85027; 93005; 96361; 96374; 99285; G0480; J2405

== ENCOUNTER 2020-07-17 06:52 | Emergency (ER) | payer MEDICAID ==
[~2020-07-17] VITALS: Ht 190.5 cm; Wt 112.0 kg
[2020-07-17] MEDS ORDERED: predniSONE 20 MG TAB PO ONE (07:30)
[2020-07-17] MEDS ORDERED: KETOROLAC 60MG 2ML VIAL IM ONE (07:30)
[2020-07-17] MEDS ORDERED: GABAPENTIN 300 MG CAP PO ONE (08:30)
[2020-07-17] MEDS ORDERED: PRED20TA PO (09:01)
[2020-07-17] MEDS ORDERED: GABA-843 PO (09:01)
[2020-07-17] MEDS ORDERED: IBUP80TA PO (09:01)
[2020-07-17 09:14] VITALS: BP 129/74
== END 2020-07-17 09:21 | disposition home or self-care (01) ==
LOC: M ED 06:52
DX: M54.32 Sciatica, left side (principal); F17.200 Nicotine dependence, unspecified, uncomplicated; F11.20 Opioid dependence, uncomplicated; B18.2 Chronic viral hepatitis C; Z88.8 Allergy status to other drugs, medicaments and biological substances
CPT/HCPCS: 96372; 99283; J1885

== ENCOUNTER 2020-08-24 08:42 | Emergency (ER) | payer MEDICAID ==
[~2020-08-24] VITALS: Ht 190.5 cm; Wt 99.4 kg
[~2020-08-24 08:42] MED LIST changes: +GABA-843 PO; +IBUP80TA PO; +PRED20TA PO
[2020-08-24] MEDS ORDERED: NS 1,000 ML IV ONE (09:15)
[2020-08-24 10:50] LABS: BASO % 0.2 % (0.0-1.0); EOS # 0.1 10^3/uL (0.0-0.5); EOS % 0.6 % (0.0-3.0); HEMATOCRIT 40.5 % (42.0-52.0); HEMOGLOBIN 12.7 g/dl (13.5-17.5); LYMPH % 8.6 % (24.0-44.0); MEAN CORPUSCULAR HEMOGLOBIN 27.2 pg (27.0-33.0); MEAN CORPUSCULAR HGB CONC 31.4 g/dl (32.0-36.5); MEAN CORPUSCULAR VOLUME 86.7 fl (80.0-96.0); MONO # 0.8 10^3/uL (0.0-0.8); MONO % 7.3 % (0.0-5.0); NEUTROPHILS # 9.6 10^3/uL (1.5-8.5); PLATELET COUNT, AUTOMATED 358 10^3/uL (150-450); RED BLOOD COUNT 4.67 10^6/uL (4.30-6.10); WHITE BLOOD COUNT 11.5 10^3/uL (4.0-10.0)
[2020-08-24 11:11] LABS: ERYTHROCYTE SEDIMENTATION RATE 22 mm/hr (0-15)
[2020-08-24 11:15] LABS: BLOOD UREA NITROGEN 7 MG/DL (7-18); C REACTIVE PROTEIN QUANTITATIV 5.47 MG/DL (0.00-0.30); CALCIUM LEVEL 8.4 MG/DL (8.5-10.1); CARBON DIOXIDE LEVEL 32 MEQ/L (21-32); CHLORIDE LEVEL 102 MEQ/L (98-107); GLOMERULAR FILTRATION RATE > 60.0 (>60); GLUCOSE, FASTING 125 MG/DL (70-100); POTASSIUM SERUM 4.6 MEQ/L (3.5-5.1); SODIUM LEVEL 136 MEQ/L (136-145)
--- NOTE | 2020-08-24 12:15 | REP ---
INDICATION: pain, swelling COMPARISON: None. TECHNIQUE: AP, lateral, bilateral oblique views of the left knee. FINDINGS: Lateral view demonstrates prepatellar swelling. The osseous structures and joint spaces are intact and normal. There is no evidence for acute fracture or dislocation. No obvious joint effusion is appreciated. No subcutaneous emphysema or radiodense foreign body. IMPRESSION: Prepatellar swelling. No acute fracture or dislocation. <Electronically signed by Sonido Crawley > 08/24/20 [id number]
[2020-08-24] MEDS ORDERED: ceFAZolin SOD 1 GM in D5W MINI-BAG PLUS 50 ML IV ONE (12:45)
[2020-08-24] MEDS ORDERED: KEFL500C17 PO (13:20)
[2020-08-24 13:30] VITALS: BP 121/58
== END 2020-08-24 13:44 | disposition home or self-care (01) ==
LOC: M ED 08:42
DX: L02.416 Cutaneous abscess of left lower limb (principal); L03.116 Cellulitis of left lower limb; B19.20 Unspecified viral hepatitis C without hepatic coma; F11.20 Opioid dependence, uncomplicated; F17.210 Nicotine dependence, cigarettes, uncomplicated
CPT/HCPCS: 36415; 73564; 80048; 83605; 85025; 85652; 86140; 87040; 87070; 87077; 87186; 87205; 96361; 96365; 99284; J0690

== ENCOUNTER → 2022-05-12 | Outpatient (REF) | payer OTHER ==
[~2022-05-12] MED LIST changes: +GABA-282 PO; -GABA-843 PO; +KEFL500C17 PO
[2022-05-12 18:58] LABS: GC DNA AMPLIFICATION NEGATIVE (NEGATIVE)
== END ==
LOC: M LAB REF 16:33
PROVIDERS: ATTEND Family Medicine
DX: F11.20 Opioid dependence, uncomplicated (principal)

== ENCOUNTER 2023-08-13 07:55 | Emergency (ER) | payer MEDICAID, OTHER ==
[~2023-08-13] VITALS: Ht 188 cm; Wt 135.6 kg
[2023-08-13] MEDS ORDERED: METH10CO PO (08:08)
[2023-08-13] MEDS ORDERED: CEFDINIR 300 MG CAP (OMNICEF) PO ONE (09:25)
[2023-08-13] MEDS ORDERED: ALBUTEROL 90 MCG/ACT 8GM HFA INHALER INH ONE (09:25)
[2023-08-13] MEDS ORDERED: ONDANSETRON 4MG ORAL DISINTEGRATING TAB PO ONE (09:25)
[2023-08-13] MEDS ORDERED: MUCI600T31 PO (10:42)
[2023-08-13] MEDS ORDERED: CEFD300C42 PO (10:42)
[2023-08-13] MEDS ORDERED: VENTAER INH (10:42)
[2023-08-13] MEDS ORDERED: DOXY-443 PO (10:42)
[2023-08-13] MEDS ORDERED: ONDA4TAB6 PO (10:49)
[2023-08-13 10:59] VITALS: BP 160/50; TEMP 97; O2SAT 99
== END 2023-08-13 11:01 | disposition home or self-care (01) ==
LOC: M ED 07:55
DX: J18.9 Pneumonia, unspecified organism (principal); Z88.8 Allergy status to other drugs, medicaments and biological substances; B19.20 Unspecified viral hepatitis C without hepatic coma; F11.10 Opioid abuse, uncomplicated; F17.200 Nicotine dependence, unspecified, uncomplicated; Z79.899 Other long term (current) drug therapy; Z11.52 Encounter for screening for COVID-19

== ENCOUNTER 2024-09-26 18:00 | Inpatient (IN) | payer MEDICAID ==
[~2024-09-26] VITALS: Ht 188 cm; Wt 103.7 kg
[~2024-09-26 18:00] MED LIST changes: +CEFD1CAP9 PO; +DOXY-441 PO; +GABA-1172 PO; +GABA-1635; -GABA-282 PO; -GABA800T4; +METH10CO PO; +MUCI600T31 PO; +ONDA-282 PO; +VENTAER INH
[2024-09-26 18:57] LABS: BASO # 0.1 10^3/uL (0.0-0.2); BASO % 0.2 % (0.0-1.0); EOS % 0.1 % (0.0-3.0); HEMATOCRIT 38.2 % (42.0-52.0); HEMOGLOBIN 12.7 g/dl (13.5-17.5); LYMPH # 1.4 10^3/uL (1.5-5.0); LYMPH % 6.9 % (24.0-44.0); MEAN CORPUSCULAR HEMOGLOBIN 27.9 pg (27.0-33.0); MEAN CORPUSCULAR HGB CONC 33.2 g/dl (32.0-36.5); MEAN CORPUSCULAR VOLUME 83.8 fl (80.0-96.0); NEUTROPHILS # 17.5 10^3/uL (1.5-8.5); NEUTROPHILS % 87.3 % (36.0-66.0); PLATELET COUNT, AUTOMATED 466 10^3/uL (150-450); RED BLOOD COUNT 4.56 10^6/uL (4.30-6.10); WHITE BLOOD COUNT 20.1 10^3/uL (4.0-10.0)
[2024-09-26 19:33] LABS: BLOOD UREA NITROGEN 11 MG/DL (9-23); CALCIUM LEVEL 7.9 MG/DL (8.5-10.1); CARBON DIOXIDE LEVEL 27 MMOL/L (20-31); CHLORIDE LEVEL 94 MMOL/L (98-107); CREATININE FOR GFR 0.61 MG/DL (0.70-1.30); GLOMERULAR FILTRATION RATE > 60.0 (>60); GLUCOSE, FASTING 110 MG/DL (60-100); POTASSIUM SERUM 4.5 MMOL/L (3.5-5.1); SODIUM LEVEL 127 MMOL/L (136-145)
[2024-09-26] MEDS ORDERED: ISOVUE-370 76% 100ML VIAL As Ordered ONE (19:42)
[2024-09-26 19:56] LABS: ALBUMIN 2.4 G/DL (3.2-5.2); ALKALINE PHOSPHATASE 140 U/L (40-129); ALT/SGPT 17 U/L (7.0-40); AST/SGOT 19 U/L (<34); BILIRUBIN,DIRECT 0.2 MG/DL (<0.4); BILIRUBIN,TOTAL 0.5 MG/DL (0.3-1.2); C REACTIVE PROTEIN QUANTITATIV 21.35 MG/DL (<1.0)
[2024-09-26 20:02] LABS: PROCALCITONIN 0.19 ng/ml
[2024-09-26 20:12] LABS: INR 1.33; PARTIAL THROMBOPLASTIN TIME 52.6 SECONDS (24.8-34.2); PROTHROMBIN TIME 16.8 SECONDS (12.5-14.5)
[2024-09-26] MEDS: ACETAMINOPHEN 325 MG TAB PO ONE (21:29)
[2024-09-26] MEDS: PIPERACILLIN/TAZOBACTAM SOD 4.5 GM in DEXTROSE 5% (D5W) ADV/MINI-BAG 50 ML IV ONE (21:35)
[2024-09-26] MEDS ORDERED: HOME MED LIST COMPLETE! XX SCH (21:40)
[2024-09-26] MEDS ORDERED: MAALOX 30 ML SUSP *UDC PO PRN (22:25)
[2024-09-26] MEDS ORDERED: MOM 30ML SUSPENSION UDC PO PRN (22:25)
[2024-09-27] VITALS (19 sets, daily range): BP systolic 106–138; BP diastolic 56–72; TEMP 96.4–98.8; O2SAT 93–99
[2024-09-27 00:25] LABS: PROCALCITONIN 0.22 ng/ml
[2024-09-27 00:46] LABS: HIV 1&2 SCREEN NEGATIVE (NEGATIVE)
[2024-09-27] MEDS: ALBUTEROL 90 MCG/ACT 8GM HFA INHALER INH SCH (01:41)
[2024-09-27] MEDS: METHADONE 10MG TAB PO ONE (01:58)
[2024-09-27] MEDS: KETOROLAC 30 MG/ML 1ML VIAL IV ONE (01:58)
[2024-09-27] MEDS: AMPICILLIN SOD/SULBACTAM SOD 3 GM in SODIUM CHLORIDE 0.9% 100ML ADD 100 ML IV SCH (03:34)
[2024-09-27 04:58] LABS: HEMATOCRIT 34.6 % (42.0-52.0); HEMOGLOBIN 11.5 g/dl (13.5-17.5); MEAN CORPUSCULAR HEMOGLOBIN 27.7 pg (27.0-33.0); MEAN CORPUSCULAR HGB CONC 33.2 g/dl (32.0-36.5); MEAN CORPUSCULAR VOLUME 83.4 fl (80.0-96.0); PLATELET COUNT, AUTOMATED 415 10^3/uL (150-450); RED BLOOD COUNT 4.15 10^6/uL (4.30-6.10); WHITE BLOOD COUNT 16.6 10^3/uL (4.0-10.0)
[2024-09-27 05:51] LABS: PROCALCITONIN 0.21 ng/ml
[2024-09-27 05:52] LABS: ALBUMIN 2.2 G/DL (3.2-5.2); ALKALINE PHOSPHATASE 126 U/L (40-129); ALT/SGPT 15 U/L (7.0-40); AST/SGOT 15 U/L (<34); BILIRUBIN,TOTAL 0.4 MG/DL (0.3-1.2); BLOOD UREA NITROGEN 10 MG/DL (9-23); CALCIUM LEVEL 7.9 MG/DL (8.5-10.1); CARBON DIOXIDE LEVEL 32 MMOL/L (20-31); CHLORIDE LEVEL 97 MMOL/L (98-107); CREATININE FOR GFR 0.65 MG/DL (0.70-1.30); GLOMERULAR FILTRATION RATE > 60.0 (>60); GLUCOSE, FASTING 119 MG/DL (60-100); MAGNESIUM LEVEL 2.3 MG/DL (1.8-2.4); POTASSIUM SERUM 3.7 MMOL/L (3.5-5.1); SODIUM LEVEL 136 MMOL/L (136-145); TOTAL PROTEIN 6.6 G/DL (5.7-8.2)
[2024-09-27] MEDS: PANTOPRAZOLE 40MG VIAL IV SCH (09:51)
[2024-09-27] MEDS: DOCUSATE SODIUM 100MG CAPSULE PO SCH (10:05)
[2024-09-27] MEDS ORDERED: IPRATROPIUM 0.5MG/ALBUTEROL 2.5MG INH SOL UD 3ML (DUONEB) NEB PRN (10:40)
[2024-09-27] MEDS: BENZONATATE 100MG CAPSULE PO SCH (11:53)
[2024-09-27] MEDS: AZITHROMYCIN 250MG TABLET PO SCH (11:55)
[2024-09-27] MEDS: oxyCODONE 5MG TAB PO PRN ×2 (11:56→15:39)
[2024-09-27] MEDS: MORPHINE 2 MG/ML 1ML VIAL IV PRN (13:30)
[2024-09-27 13:39] LABS: HEPATITIS B SURFACE ANTIGEN NEGATIVE (NEGATIVE)
[2024-09-27 14:00] LABS: HEPATITIS B CORE ANTIBODY IGM NEGATIVE (NEGATIVE)
[2024-09-27 14:13] LABS: HEPATITIS C VIRUS ABY INDEX > 11.00 INDEX (<0.8)
[2024-09-27] MEDS ORDERED: HYDROMORPHONE HCL 0.5 MG/ 0.5 ML SYRINGE IV PRN (17:45)
[2024-09-27] MEDS: HYDROMORPHONE HCL 0.5 MG/ 0.5 ML SYRINGE IV PRN (18:00)
[2024-09-27] MEDS: ACETAMINOPHEN 325 MG TAB PO PRN (20:04)
[2024-09-28] VITALS (22 sets, daily range): BP systolic 121–150; BP diastolic 61–80; TEMP 97–98.9; O2SAT 94–100
[2024-09-28 04:56] LABS: BASO % 0.4 % (0.0-1.0); EOS # 0.1 10^3/uL (0.0-0.5); EOS % 1.5 % (0.0-3.0); HEMATOCRIT 38.4 % (42.0-52.0); HEMOGLOBIN 12.4 g/dl (13.5-17.5); LYMPH # 1.8 10^3/uL (1.5-5.0); LYMPH % 24.8 % (24.0-44.0); MEAN CORPUSCULAR HEMOGLOBIN 27.3 pg (27.0-33.0); MEAN CORPUSCULAR HGB CONC 32.3 g/dl (32.0-36.5); MEAN CORPUSCULAR VOLUME 84.6 fl (80.0-96.0); MONO # 0.5 10^3/uL (0.0-0.8); MONO % 6.4 % (2.0-8.0); NEUTROPHILS # 4.9 10^3/uL (1.5-8.5); NEUTROPHILS % 66.6 % (36.0-66.0); PLATELET COUNT, AUTOMATED 511 10^3/uL (150-450); RED BLOOD COUNT 4.54 10^6/uL (4.30-6.10); WHITE BLOOD COUNT 7.4 10^3/uL (4.0-10.0)
[2024-09-28 05:30] LABS: BLOOD UREA NITROGEN 9 MG/DL (9-23); CALCIUM LEVEL 7.8 MG/DL (8.5-10.1); CARBON DIOXIDE LEVEL 29 MMOL/L (20-31); CHLORIDE LEVEL 104 MMOL/L (98-107); CREATININE FOR GFR 0.54 MG/DL (0.70-1.30); GLOMERULAR FILTRATION RATE > 60.0 (>60); GLUCOSE, FASTING 112 MG/DL (60-100); POTASSIUM SERUM 4.6 MMOL/L (3.5-5.1); SODIUM LEVEL 142 MMOL/L (136-145)
[2024-09-28] MEDS: cloNIDine 0.1MG TABLET PO SCH (10:03)
[2024-09-28] MEDS: METHADONE 10MG TAB PO SCH ×2 (10:03→20:37)
[2024-09-28] MEDS: METHADONE 10MG TAB PO ONE (13:39)
[2024-09-28] MEDS: TRANEXAMIC ACID 100 MG/ML 10ML VIAL NEB ONE (13:43)
[2024-09-28] MEDS: methocarbamoL 750 MG TAB PO SCH (16:26)
[2024-09-28 17:40] LABS: BASO % 0.3 % (0.0-1.0); EOS # 0.1 10^3/uL (0.0-0.5); EOS % 0.7 % (0.0-3.0); HEMATOCRIT 36.9 % (42.0-52.0); HEMOGLOBIN 11.8 g/dl (13.5-17.5); LYMPH # 1.1 10^3/uL (1.5-5.0); LYMPH % 12.6 % (24.0-44.0); MEAN CORPUSCULAR VOLUME 84.4 fl (80.0-96.0); MONO # 0.5 10^3/uL (0.0-0.8); NEUTROPHILS # 7.1 10^3/uL (1.5-8.5); NEUTROPHILS % 80.1 % (36.0-66.0); PLATELET COUNT, AUTOMATED 585 10^3/uL (150-450); RED BLOOD COUNT 4.37 10^6/uL (4.30-6.10); WHITE BLOOD COUNT 8.9 10^3/uL (4.0-10.0)
[2024-09-28 17:54] LABS: BLOOD UREA NITROGEN 5 MG/DL (9-23); CALCIUM LEVEL 8.1 MG/DL (8.5-10.1); CARBON DIOXIDE LEVEL 28 MMOL/L (20-31); CHLORIDE LEVEL 107 MMOL/L (98-107); CREATININE FOR GFR 0.58 MG/DL (0.70-1.30); GLOMERULAR FILTRATION RATE > 60.0 (>60); GLUCOSE, FASTING 122 MG/DL (60-100); MAGNESIUM LEVEL 2.1 MG/DL (1.8-2.4); POTASSIUM SERUM 4.1 MMOL/L (3.5-5.1); SODIUM LEVEL 142 MMOL/L (136-145)
[2024-09-29] VITALS (26 sets, daily range): BP systolic 125–137; BP diastolic 65–81; TEMP 96.8–98.6; O2SAT 97–99
[2024-09-29] MEDS: TRANEXAMIC ACID 100 MG/ML 10ML VIAL NEB SCH (01:15)
[2024-09-29 05:02] LABS: BASO % 0.5 % (0.0-1.0); EOS # 0.2 10^3/uL (0.0-0.5); EOS % 1.9 % (0.0-3.0); HEMATOCRIT 36.6 % (42.0-52.0); HEMOGLOBIN 11.8 g/dl (13.5-17.5); LYMPH # 2.3 10^3/uL (1.5-5.0); LYMPH % 27.3 % (24.0-44.0); MEAN CORPUSCULAR HEMOGLOBIN 27.4 pg (27.0-33.0); MEAN CORPUSCULAR HGB CONC 32.2 g/dl (32.0-36.5); MEAN CORPUSCULAR VOLUME 84.9 fl (80.0-96.0); MONO # 0.5 10^3/uL (0.0-0.8); MONO % 5.6 % (2.0-8.0); NEUTROPHILS # 5.4 10^3/uL (1.5-8.5); NEUTROPHILS % 64.3 % (36.0-66.0); PLATELET COUNT, AUTOMATED 601 10^3/uL (150-450); RED BLOOD COUNT 4.31 10^6/uL (4.30-6.10); WHITE BLOOD COUNT 8.3 10^3/uL (4.0-10.0)
[2024-09-29 05:23] LABS: BLOOD UREA NITROGEN 8 MG/DL (9-23); CALCIUM LEVEL 8.2 MG/DL (8.5-10.1); CARBON DIOXIDE LEVEL 29 MMOL/L (20-31); CHLORIDE LEVEL 107 MMOL/L (98-107); CREATININE FOR GFR 0.61 MG/DL (0.70-1.30); GLOMERULAR FILTRATION RATE > 60.0 (>60); GLUCOSE, FASTING 105 MG/DL (60-100); POTASSIUM SERUM 4.2 MMOL/L (3.5-5.1); SODIUM LEVEL 143 MMOL/L (136-145)
[2024-09-29] MEDS ORDERED: HYDROMORPHONE HCL 0.5 MG/ 0.5 ML SYRINGE IV PRN (10:45)
[2024-09-29] MEDS: HYDROMORPHONE HCL 0.5 MG/ 0.5 ML SYRINGE IV PRN (12:20)
[2024-09-29 22:43] LABS: HCV RNA QUANTITATION <15 NOT DETECTED IU/mL (NOT DETECTED); HCV RNA log10 <1.18 NOT DETECTED Log IU/mL (NOT DETECTED)
[2024-09-30] VITALS (16 sets, daily range): BP systolic 124–136; BP diastolic 63–76; TEMP 96.8–98.9; O2SAT 96–98
[2024-09-30 06:01] LABS: BASO # 0.1 10^3/uL (0.0-0.2); BASO % 0.8 % (0.0-1.0); EOS # 0.2 10^3/uL (0.0-0.5); EOS % 2.7 % (0.0-3.0); HEMATOCRIT 37.1 % (42.0-52.0); HEMOGLOBIN 11.8 g/dl (13.5-17.5); LYMPH # 2.8 10^3/uL (1.5-5.0); LYMPH % 37.6 % (24.0-44.0); MEAN CORPUSCULAR HGB CONC 31.8 g/dl (32.0-36.5); MEAN CORPUSCULAR VOLUME 84.9 fl (80.0-96.0); MONO # 0.5 10^3/uL (0.0-0.8); NEUTROPHILS # 3.8 10^3/uL (1.5-8.5); NEUTROPHILS % 51.5 % (36.0-66.0); PLATELET COUNT, AUTOMATED 604 10^3/uL (150-450); RED BLOOD COUNT 4.37 10^6/uL (4.30-6.10); WHITE BLOOD COUNT 7.4 10^3/uL (4.0-10.0)
[2024-09-30 06:21] LABS: BLOOD UREA NITROGEN 7 MG/DL (9-23); CALCIUM LEVEL 8.5 MG/DL (8.5-10.1); CARBON DIOXIDE LEVEL 30 MMOL/L (20-31); CHLORIDE LEVEL 104 MMOL/L (98-107); CREATININE FOR GFR 0.67 MG/DL (0.70-1.30); GLOMERULAR FILTRATION RATE > 60.0 (>60); GLUCOSE, FASTING 90 MG/DL (60-100); POTASSIUM SERUM 4.3 MMOL/L (3.5-5.1); SODIUM LEVEL 142 MMOL/L (136-145)
[2024-09-30] MEDS ORDERED: HYDROMORPHONE HCL 0.5 MG/ 0.5 ML SYRINGE IV PRN (10:05)
[2024-09-30] MEDS: HYDROMORPHONE HCL 0.5 MG/ 0.5 ML SYRINGE IV PRN (14:05)
[2024-09-30 18:44] LABS: URINE STREP PNEUMONIAE ANTIGEN NOT DETECTED (NOT DETECT)
[2024-10-01 04:03] VITALS: BP 137/71; TEMP 97.7; O2SAT 95
[2024-10-01 09:21] LABS: BASO # 0.1 10^3/uL (0.0-0.2); BASO % 0.9 % (0.0-1.0); EOS # 0.2 10^3/uL (0.0-0.5); EOS % 2.2 % (0.0-3.0); HEMATOCRIT 39.5 % (42.0-52.0); HEMOGLOBIN 12.8 g/dl (13.5-17.5); LYMPH # 2.9 10^3/uL (1.5-5.0); LYMPH % 31.7 % (24.0-44.0); MEAN CORPUSCULAR HEMOGLOBIN 27.5 pg (27.0-33.0); MEAN CORPUSCULAR HGB CONC 32.4 g/dl (32.0-36.5); MEAN CORPUSCULAR VOLUME 84.8 fl (80.0-96.0); MONO # 0.5 10^3/uL (0.0-0.8); MONO % 5.9 % (2.0-8.0); NEUTROPHILS # 5.4 10^3/uL (1.5-8.5); NEUTROPHILS % 58.9 % (36.0-66.0); PLATELET COUNT, AUTOMATED 657 10^3/uL (150-450); RED BLOOD COUNT 4.66 10^6/uL (4.30-6.10); WHITE BLOOD COUNT 9.2 10^3/uL (4.0-10.0)
[2024-10-01 09:48] LABS: BLOOD UREA NITROGEN 9 MG/DL (9-23); CALCIUM LEVEL 8.7 MG/DL (8.5-10.1); CARBON DIOXIDE LEVEL 30 MMOL/L (20-31); CHLORIDE LEVEL 102 MMOL/L (98-107); GLOMERULAR FILTRATION RATE > 60.0 (>60); GLUCOSE, FASTING 94 MG/DL (60-100); POTASSIUM SERUM 4.7 MMOL/L (3.5-5.1); SODIUM LEVEL 139 MMOL/L (136-145)
[2024-10-01 12:00] VITALS: BP 110/65; TEMP 96.8; O2SAT 95
[2024-10-01] MEDS: HYDROMORPHONE HCL 0.5 MG/ 0.5 ML SYRINGE IV PRN (16:37)
[2024-10-01 20:36] VITALS: BP 112/65; TEMP 97.3; O2SAT 96
[2024-10-02 04:00] VITALS: BP 98/51; TEMP 97.5; O2SAT 98
[2024-10-02 09:31] VITALS: BP 118/62
[2024-10-02 11:27] LABS: QuantiFERON-TB Gold Plus POSITIVE (NEGATIVE)
[2024-10-02 11:53] VITALS: BP 128/77; TEMP 97; O2SAT 96
[2024-10-02] MEDS ORDERED: VENTAER INH (13:30)
[2024-10-02] MEDS ORDERED: MUCI600T31 PO (13:30)
[2024-10-02] MEDS ORDERED: AMOX875T2 PO (13:30)
== END 2024-10-02 15:39 | disposition home or self-care (01) | DRG 720 ==
LOC: M ED 18:00 → M ED INP 22:21 → EEVIPCON 22:21 → M ICU 09-27 00:38 → M MSPAV 09-30 13:37
PROVIDERS: ADMIT Student in an Organized Health Care Education/Training Program; ATTEND Internal Medicine
PROC: B246ZZZ Ultrasonography of Right and Left Heart (ICD-10-PCS; principal; 2024-09-26)
DX: A41.9 Sepsis, unspecified organism (principal); J85.1 Abscess of lung with pneumonia; J15.4 Pneumonia due to other streptococci; D69.6 Thrombocytopenia, unspecified; E87.1 Hypo-osmolality and hyponatremia; F11.23 Opioid dependence with withdrawal; R04.2 Hemoptysis; F17.200 Nicotine dependence, unspecified, uncomplicated; Z88.8 Allergy status to other drugs, medicaments and biological substances